=== PATIENT | female | born 1995 | race Caucasian/White ===

== ENCOUNTER 2019-08-01 13:49 | Emergency (ER) | payer OTHER, SELFPAY ==
[2019-08-01 13:58] VITALS: BP 122/78; PULSE 99; RESP 18; TEMP 36.7; O2SAT 97
--- NOTE | 2019-08-01 14:03 | DI.RAD.S_ITS ---
PROCEDURE: XR CHEST 2V INDICATIONS: cough x 2 weeks. TECHNIQUE: 2 views of the chest were acquired. COMPARISON: None. FINDINGS: Surgical changes and devices: None. Lungs and pleura: Lungs are clear. No pleural effusions or pneumothorax. Mediastinum: Mediastinal contours are normal. Heart size is normal. Bones and chest wall: No suspicious bony abnormalities. Soft tissues appear unremarkable. IMPRESSION: Negative chest. No acute cardiopulmonary process is evident. Dictated by: Terrell Cordova M.D. on 08/01/2019 at 13:22 Approved by: Terrell Cordova M.D. on 08/01/2019 at 13:23
[2019-08-01 14:46] LABS: Influenza A - CEPHEID Flu A NEGATIVE (NEGATIVE); Influenza B - CEPHEID Flu B NEGATIVE (NEGATIVE)
[2019-08-01 16:30] VITALS: BP 128/88; PULSE 76; RESP 16; O2SAT 98
--- NOTE | 2019-08-01 16:51 | ED.URI ---
HPI - URI/Sore Throat <LUPE Adams - Last Filed: 08/01/19 16:57> General Chief Complaint: Upper Respiratory Symptoms Stated Complaint: Cough for 2 weeks Time Seen by Provider: 08/01/19 16:25 Source: patient Mode of arrival: Ambulatory Limitations: no limitations History of Present Illness HPI Narrative: 24-year-old female presents to the emergency department complaining of dry cough for the past 2 weeks. She states she also has associated fatigue and reports sore throat today. She denies any fevers, nausea, vomiting, diarrhea, or other concerns. She states she had asthma as a kid in often gets worsening exacerbation after an illness. Patient reports family at home have had walking pneumonia. She denies any chest pain, shortness of breath, recent travels, or taking estrogen control. Related Data Previous Rx's Medication Instructions Recorded albuterol sulfate 2 puff INHALATION Q4-6H PRN #8.5 08/01/19 gram benzonatate [Tessalon Perles] 100 mg PO BID PRN #20 cap 08/01/19 fluticasone propionate [Flonase 1 spray NASAL BID 14 Days #15.8 ml 08/01/19 Allergy Relief] Allergies Allergy/AdvReac Type Severity Reaction Status Date / Time amoxicillin Allergy Intermediate Vomiting Verified 08/01/19 14:03 prednisone AdvReac Intermediate Anxiety Verified 08/01/19 14:03 Review of Systems <LUPE Adams - Last Filed: 08/01/19 16:57> Review of Systems Narrative: REVIEW OF SYSTEMS: GENERAL: Denies fevers. HENT: No head trauma or hearing loss. EYES: No loss of vision, double vision, eye pain, irritation or discharge. CARDIOVASCULAR: No chest pain or syncope. RESPIRATORY: No shortness of breath. Reports cough, see HPI. GASTROINTESTINAL: No nausea, vomiting, diarrhea, or constipation. MUSCULOSKELETAL: No weakness or injury. INTEGUMENTARY: No rash, lesions, or pruritus. NEURO: No memory loss, or confusion. Patient History <LUPE Adams - Last Filed: 08/01/19 16:57> Medical History Asthma (Acute) Social History Smoking Status: Never smoker Smoking Status: Never smoker alcohol intake frequency: 0-2 drinks per day Substance Use Type: does not use Exam <VeraLUPE Brennan - Last Filed: 08/01/19 16:57> Initial Vital Signs Initial Vital Signs: Vital Signs Temperature 98.1 F 08/01/19 13:58 Pulse Rate 99 H 08/01/19 13:58 Respiratory Rate 18 08/01/19 13:58 Blood Pressure 122/78 08/01/19 13:58 Pulse Oximetry 97 08/01/19 13:58 PHYSICAL EXAMINATION: GENERAL: Well groomed, alert, and cooperative. Answers questions promptly and appropriately. Vital signs noted. HENT: Normocephalic, atraumatic. Ear canals patent. TMs intact without mucus or erythema. Oropharynx with erythema, no exudate noted on exam. Tonsils are and equal bilaterally 1+. EYES: Conjunctiva pink, sclera white, no periorbital swelling. No discharge. CHEST: Normal to inspection and without deformities. CARDIOVASCULAR: S1 and S2 sounds normal. Regular rate and rhythm, no murmurs, clicks, or bruits. RESPIRATORY: Normal respiratory rate, trachea midline, airway patent. No stridor, nasal flaring or accessory muscle use. Able to speak in full sentences. Lungs are clear in all [place] without wheeze, rhonchi, or crackles. Dry cough noted throughout examination. MUSCULOSKELETAL: Normal gait and coordination. Equal tone and mass bilaterally. EXTREMITIES: Moves all extremities. SKIN: Warm, dry, soft, appropriate color for ethnicity. No lesions, rashes, or wounds. NEURO: Alert and Oriented X 3. Good coordination. No ataxia or cognitive issues. PSYCH: Appropriate affect and mood. <Regla Colón DO - Last Filed: 08/02/19 19:59> Initial Vital Signs Initial Vital Signs: Vital Signs Temperature 98.1 F 08/01/19 13:58 Pulse Rate 99 H 08/01/19 13:58 Respiratory Rate 18 08/01/19 13:58 Blood Pressure 122/78 08/01/19 13:58 Pulse Oximetry 97 08/01/19 13:58 Course <LUPE Adams - Last Filed: 08/01/19 16:57> Orders Ordered: ED Orders 08/01/19 14:03 XR chest 2V Stat 08/01/19 14:05 Flu test [Influenza A & B (PCR)] Stat 08/01/19 14:08 Throat Culture Stat Vital Signs Vital signs: Vital Signs - 8 hr 08/01/19 13:58 08/01/19 16:30 Temperature 98.1 F Pulse Rate 99 H 76 Respiratory Rate 18 16 Blood Pressure 122/78 Blood Pressure [Right Arm] 128/88 Pulse Oximetry 97 98 <Regla Colón DO - Last Filed: 08/02/19 19:59> Orders Ordered: ED Orders 08/01/19 14:03 XR chest 2V Stat 08/01/19 14:05 Flu test [Influenza A & B (PCR)] Stat 08/01/19 14:08 Throat Culture Stat Vital Signs Vital signs: Vital Signs - 8 hr 08/01/19 13:58 08/01/19 16:30 Temperature 98.1 F Pulse Rate 99 H 76 Respiratory Rate 18 16 Blood Pressure 122/78 Blood Pressure [Right Arm] 128/88 Pulse Oximetry 97 98 MDM - URI/Sore Throat <LUPE Adams - Last Filed: 08/01/19 16:57> Medical Records Attestation: I reviewed the patient's medical records. Lab Data Attestation: I reviewed the patient's lab results. Labs: Lab Results 08/01/19 Range/Units 14:05 Influenza A (RT-PCR) Flu a negative (NEGATIVE) Influenza B (RT-PCR) Flu b negative (NEGATIVE) Point of Care Testing Rapid Strep A Negative Imaging Data Chest x-ray: Radiologist's Impression: [address] [address] XRay Report Signed Patient: Birgit Stone [facility]#: [id number] : 1995Acct:[id number] Age/Sex: 24 / FDate of Service: 08/01/19 Loc: ED Accession Number: [id number] Procedure: XR chest 2V Ordering Provider: Regla Colón D.O. PROCEDURE: XR CHEST 2V INDICATIONS: cough x 2 weeks. TECHNIQUE: 2 views of the chest were acquired. COMPARISON: None. FINDINGS: Surgical changes and devices: None. Lungs and pleura: Lungs are clear. No pleural effusions or pneumothorax. Mediastinum: Mediastinal contours are normal. Heart size is normal. Bones and chest wall: No suspicious bony abnormalities. Soft tissues appear unremarkable. IMPRESSION: Negative chest. No acute cardiopulmonary process is evident. Dictated by: Terrell Cordova M.D. on 08/01/2019 at 13:22 Approved by: Terrell Cordova M.D. on 08/01/2019 at 13:23 [facility] Narrative Medical decision making narrative: 24-year-old female presents emergency department complaining of cough for the past 2 weeks. Chest x-rays negative for any findings of pneumonia per effusion. No wheezes heard on examination. Less likely pneumonia or asthma exacerbation due to these findings. Less likely bacterial infection due to lack of systemic symptoms such as high fever or tachycardia. I suspect her cough is a combination of post viral irritation as well as post viral sinusitis. She was prescribed Tessalon Perles, a new albuterol inhaler, and Flonase to help with postnasal drip. Patient was encouraged to follow up with her primary care provider in 1-2 weeks for re-evaluation. She agreed to plan of care, all questions were answered at this time. <Regla Colón, DO - Last Filed: 08/02/19 19:59> Lab Data Labs: Lab Results 08/01/19 Range/Units 14:05 Influenza A (RT-PCR) Flu a negative (NEGATIVE) Influenza B (RT-PCR) Flu b negative (NEGATIVE) Point of Care Testing Rapid Strep A Negative Discharge Plan Departure Patient Disposition: Home Clinical Impression: Upper respiratory infection Qualifiers: URI type: unspecified URI Qualified Code(s): J06.9 - Acute upper respiratory infection, unspecified Discharge Date/Time: 08/01/19 17:19 Instructions: DI for Acute Bronchitis Activity Restrictions/Additional Instructions: Thank you for entrusting me with your care today. As discussed, your chest x-rays negative for pneumonia, your swab was negative for strep. However, a throat culture was sent to lab in you will be called in 24-48 hours if it is positive for any other strands of strep. I prescribed you an albuterol inhaler, cough suppressant, and nasal spray. Please use the nasal spray for the next 2 weeks morning and night to help with postnasal drip. Follow up with your primary care provider in 1-2 weeks for re-evaluation if your symptoms continue. Return to the emergency department if you develop worsening symptoms such as high fevers, uncontrollable vomiting, syncope, chest pain, other concerns. Prescriptions: New benzonatate [Tessalon Perles] 100 mg capsule 100 mg PO BID PRN (Reason: cough) Qty: 20 RF: 0 albuterol sulfate 90 mcg/actuation HFA aerosol inhaler 2 puff INHALATION Q4-6H PRN (Reason: shortness of breath or wheezing) Qty: 8.5 RF: 0 fluticasone propionate [Flonase Allergy Relief] 50 mcg/actuation spray,suspension 1 spray NASAL BID 14 Days Qty: 15.8 RF: 0
== END 2019-08-01 17:19 | disposition home or self-care (01) ==
PROVIDERS: Emergency Medicine; Emergency Provider Nurse Practitioner
DX: J06.9 Acute upper respiratory infection, unspecified (principal); R53.1 Weakness
CPT/HCPCS: 71046; 87070; 87502; 87880; 99283